=== PATIENT | male | born 1990 | race Two or more races ===

== ENCOUNTER 2019-02-12 02:08 | Emergency (ER) | payer SELFPAY ==
[2019-02-12 02:20] VITALS: BP 130/72
== END 2019-02-12 05:09 | disposition left against medical advice (07) ==
LOC: ER 02:08
DX: Z53.21 Procedure and treatment not carried out due to patient leaving prior to being seen by health care provider (principal)

== ENCOUNTER 2019-12-23 12:09 | Emergency (ER) | payer SELFPAY ==
[2019-12-23] MEDS ORDERED: IBUPROFEN 800 MG TABLET PO ONE (13:21)
--- NOTE | 2019-12-23 13:28 | ER Document Report ---
HPI - HPI Patient complains to provider of: cold symptoms DUPREE Sorethroat Time Seen by Provider: 12/23/19 13:16 Onset: Yesterday Onset/Duration: Sudden Quality of pain: Achy Pain Level: 4 Context: 29-year-old male presents emergency department with complaints of cough sore throat, nasal congestion, runny eyes headache since yesterday. Denies fever diarrhea vomiting. Took Mucinex without relief of symptoms. Did not receive his flu vaccine this year. Recently flew from [place] to [place]. 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 IN LAST 30 DAYS: No - HEENT HEENT: Atraumatic, Conjuctival Injection - Slightly injected no drainage noted, Normocephalic, PERRLA, Pharyngeal Erythema. negative: Tympanic Membrane Red, Tympanic Membrane Bulging - NECK Neck: Normal Inspection, Supple. negative: Lymphadenopathy-Left, Lymphadenopathy-Right - RESPIRATORY Respiratory: Breath Sounds Normal, No Respiratory Distress - CARDIOVASCULAR Cardiovascular: Regular Rate - GI/ABDOMEN Gastrointestinal: Abdomen Soft, Abdomen Non-Tender - MUSCULOSKELETAL/EXTREMETIES Musculoskeletal/Extremeties: EMA CALDWELL - NEURO Level of Consciousness: Awake, Alert, Appropriate - DERM Integumentary: Warm, Dry Course - Re-evaluation Re-evalutation: 12/23/19 13:24 Patient presents emergency department with headache cough sore throat watery eyes since yesterday. Took Mucinex without relief of symptoms. Denies history of flu vaccine. 12/23/19 14:39 Patient was instructed on influenza B. Instructed on ibuprofen and Flonase and Tamiflu. Instructed on the importance of good handwashing follow-up with his primary care provider return to the ED for worsening symptoms trouble breathing any concerns. He verbalized understanding to all information. Chest X-Ray 12/23/19 13:21 IMPRESSION: No focal consolidation or other evidence of acute intrathoracic process. Laboratory 12/23/19 12/23/19 14:00 14:00 Influenza A (Rapid) NEGATIVE Influenza B (Rapid) POSITIVE Group A Strep Rapid NEGATIVE - Vital Signs Vital signs: Temp Pulse Resp BP Pulse Ox 98.4 F 67 18 133/79 H 99 12/23/19 12:50 12/23/19 12:50 12/23/19 12:50 12/23/19 12:50 12/23/19 12:50 - Diagnostic Test Radiology reviewed: Reports reviewed Discharge - Discharge Clinical Impression: Sore throat, Cough Head ache Qualifiers: Headache type: unspecified Headache chronicity pattern: acute headache Intractability: not intractable Qualified Code(s): R51 - Headache Condition: Stable Disposition: HOME, SELF-CARE Instructions: Ibuprofen (General) ([facility]), Influenza ([facility]), Sore Throat ([facility]) Additional Instructions: *You have been evaluated for cold symptoms today, cough, headache, nasal congestion, influenza B You are positive for influenza B Your chest x-ray was negative for pneumonia Your strep test was negative. A throat culture is pending. You may be contacted in 3 to 4 days should you need antibiotics. *Increase fluid intake as discussed *Take medication as prescribed *Gargle with warm salt water, suck on throat lozenges for your sore throat *Monitor your temperature, take Tylenol as indicated *Follow up with a primary care provider within 1 week *Return to ED for worsening condition, changes, needs, difficulty breathing, concerns Monitor your blood pressure. Your blood pressure was elevated today. This may be because you were anxious, in pain or because you need medication. It is important to follow up with your primary care provider for full evaluation. Prescriptions: Fluticasone Propionate [Flonase Allergy Relief] 18.2 ml NS DAILY #1 spray.susp Ibuprofen [Motrin 800 mg Tablet] 800 mg PO TID #15 tablet Oseltamivir Phosphate [Tamiflu 75 mg Capsule] 75 mg PO BID #10 capsule Forms: Elevated Blood Pressure, Return to Work
--- NOTE | 2019-12-23 13:57 | RADIOLOGY REPORT (SQ) ---
EXAM DESCRIPTION: CHEST 2 VIEWS COMPLETED DATE/TIME: 12/23/2019 1:48 pm REASON FOR STUDY: cough COMPARISON: None. EXAM PARAMETERS: NUMBER OF VIEWS: two views TECHNIQUE: Digital Frontal and Lateral radiographic views of the chest acquired. RADIATION DOSE: NA LIMITATIONS: none FINDINGS: LUNGS AND PLEURA: No opacities, masses or pneumothorax. No pleural effusion. MEDIASTINUM AND HILAR STRUCTURES: No masses or contour abnormalities. HEART AND VASCULAR STRUCTURES: Heart normal size. No evidence for failure. BONES: No acute findings. HARDWARE: None in the chest. OTHER: No other significant finding. IMPRESSION: No focal consolidation or other evidence of acute intrathoracic process. TECHNICAL DOCUMENTATION: JOB ID: [id number] 2010 [employer]- All Rights Reserved Reading location - IP/workstation name: [email or web address]
[2019-12-23 14:21] LABS: A TYPE INFLUENZA AG NEGATIVE (NEGATIVE); B INFLUENZA AG POSITIVE (NEGATIVE)
[2019-12-23 15:13] VITALS: BP 121/68
== END 2019-12-23 15:10 | disposition home or self-care (01) ==
LOC: ER 12:09
DX: J02.9 Acute pharyngitis, unspecified (principal); R05 Cough; R09.81 Nasal congestion; R51 Headache
CPT/HCPCS: 71046; 87070; 87804; 87880

== ENCOUNTER 2020-02-06 17:02 | Emergency (ER) | payer MEDICAID ==
[2020-02-06] MEDS ORDERED: IBUPROFEN 600 MG TABLET PO ONE (17:12)
[2020-02-06] MEDS ORDERED: ACETAMINOPHEN 325 MG TABLET PO ONE (17:12)
--- NOTE | 2020-02-06 17:13 | ER Document Report ---
HPI - HPI Time Seen by Provider: 02/06/20 17:06 Notes: Otherwise healthy 29-year-old male presenting to the emergency department chief complaint of sore throat, dizziness and fever. Patient reports he has also had cough for about a week. He reports it is a productive cough with whitish sputu m. He denies any nausea, vomiting, diarrhea. He denies any recent travel or exposure to any known COVID-19 patients. Past Medical History - General Information source: Patient - Social History Smoking Status: Never Smoker Frequency of alcohol use: None Family History: None - Medical History Medical History: Negative Renal/ Medical History: Denies: Hx Peritoneal Dialysis Surgical Hx: Negative Vertical Provider Document - CONSTITUTIONAL Notes: PHYSICAL EXAMINATION: GENERAL: Well-appearing, well-nourished and in no acute distress. HEAD: Atraumatic, normocephalic. EYES: Pupils equal round and reactive to light, extraocular movements intact, sclera anicteric, conjunctiva are normal. ENT: Nares patent, oropharynx clear without exudates. Right tonsil mildly erythematous and mildly swollen. Uvula midline, no evidence of peritonsillar abscess. Moist mucous membranes. NECK: Normal range of motion, supple without lymphadenopathy LUNGS: Breath sounds clear to auscultation bilaterally and equal. No wheezes rales or rhonchi. HEART: Regular rate and rhythm without murmurs ABDOMEN: Soft, nontender, nondistended abdomen. No guarding, no rebound. No masses appreciated. Musculoskeletal: Normal range of motion, no pitting or edema. No cyanosis. NEUROLOGICAL: Cranial nerves grossly intact. Normal speech, normal gait. Normal sensory, motor exams PSYCH: Normal mood, normal affect. SKIN: Warm, Dry, normal turgor, no rashes or lesions noted. - INFECTION CONTROL TRAVEL OUTSIDE OF THE [place] IN LAST 30 DAYS: No Course - Re-evaluation Re-evalutation: Patient appears well, nontoxic, he does have some swelling to his right tonsil however it does not appear to be an abscess at this time. The rest of his work- up is unremarkable. He does report he feels improved after administration of medications and IV fluids here in the emergency department he will be started on antibiotics for suspected tonsillitis. Strict ED return precautions discussed, patient verbalized understanding and agreement with same. - Vital Signs Vital signs: Temp Pulse Resp BP Pulse Ox 101.4 F H 88 125/70 98 02/06/20 17:10 02/06/20 17:10 02/06/20 17:10 02/06/20 17:10 Discharge - Discharge Clinical Impression: Sore throat Condition: Stable Disposition: HOME, SELF-CARE Additional Instructions: Your work-up today was reassuring. Your rapid strep test and influenza test were negative. I am starting you on antibiotics because your tonsil does appear to have an infection in it. Please take medications exactly as prescribed and finish the entire course even if your symptoms improve. Please use salt water gargles to help with your pain. You may also take Tylenol or ibuprofen for pain and fever. Return to the emergency department if you are unable to swallow your own saliva or have worsening with breathing. Prescriptions: Clindamycin HCl 300 mg PO TID #21 capsule Prednisone [Deltasone 20 mg Tablet] 3 tab PO DAILY 5 Days #15 tablet
[2020-02-06 18:00] LABS: A TYPE INFLUENZA AG NEGATIVE (NEGATIVE); B INFLUENZA AG NEGATIVE (NEGATIVE)
[2020-02-06] MEDS ORDERED: NORMAL SALINE 1000 ML 1,000 ML IV ONE (18:20)
[2020-02-06] MEDS ORDERED: DEXAMETHASONE SOD PHOS INJ 10 MG/1 ML VIAL IV ONE (18:21)
[2020-02-06 18:49] VITALS: BP 119/59
== END 2020-02-06 19:30 | disposition home or self-care (01) ==
LOC: ER 17:02
DX: J02.9 Acute pharyngitis, unspecified (principal); R42 Dizziness and giddiness; R50.9 Fever, unspecified; R05 Cough
CPT/HCPCS: 99284; 96361; 96374; 87070; 87880; 87077; 87804; J7030; J1100

== ENCOUNTER → 2020-03-14 | Outpatient (CLI) | payer MEDICAID ==
--- NOTE | 2020-03-14 12:53 | ER RDC ASSESSMENT REPORT ---
Intake - In the Last 14 days Have you traveled outside [place]?: Yes --City/State: [place] Have you been in close contact with someone CONFIRMED: Yes Worked in Healthcare?: No - Symptoms Subjective Fever([place] feverish): Yes Chills: Yes Muscule Aches: Yes Runny Nose: Yes Sore Throat: No Cough (New or worsening chronic cough): Yes Shortness of breath: No Nausea or Vomiting: No Headache: Yes Abdominal Pain: No Diarrhea(3 or more loose stools in last 24 hours): No - Do you have any of the following Chronic lung disease: Asthma or emphysema or COPD: No Cystic Fibrosis: No Diabetes: No High Blood Pressure: No Cardiovascular Disease: No Chronic Kidney Disease: No Chronic Liver Disease: No Chronic blood disorder like Sickle Cell Disease: No Weak immune system due to disease or medication: No Neurologic condition that limits movement: No Developmental delay - Moderate to Severe: No Recent (within past 2 weeks) or current : Yes - Objective Temperature: 97.7 F Pulse Rate: 69 Respiratory Rate: 18 Blood Pressure: 105/53 O2 Sat by Pulse Oximetry: 96 Objective: Given above, testing performed: If Testing Performed: Test Specimen Type Sent to General - General Information source: Patient Notes: Patient presents to the [facility] testing site for evaluation of possible COVID virus. Patient states that he had recently traveled out of [facility] and has had exposure to someone who did test positive for the coronavirus. 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 Patient states now he only has sore throat symptoms and all the other symptoms have resolved. - HPI Onset: Other - 03/06/2020 Onset/Duration: Gradual Quality of pain: Achy Associated symptoms: Sore throat Exacerbated by: Denies Relieved by: Denies Similar symptoms previously: No Recently seen / treated by doctor: No - Related Data Allergies/Adverse Reactions: No Known Allergies Allergy (Verified 12/23/19 13:19) Past Medical History - General Information source: Patient - Social History Smoking Status: Current Every Day Smoker Frequency of alcohol use: None Drug Abuse: None Family History: None - Medical History Medical History: Negative Renal/ Medical History: Denies: Hx Peritoneal Dialysis Surgical Hx: Negative Physical Exam - General General appearance: Appears well, Alert In distress: None - HEENT Head: Normocephalic, Atraumatic Eyes: Normal Conjunctiva: Normal Nasal: Normal Mouth/Lips: Normal Pharynx: Erythema. No: Exudate, Tonsillar hypertrophy Neck: Normal - Respiratory Respiratory status: No respiratory distress Chest status: Nontender Breath sounds: Normal. No: Rales, Rhonchi, Stridor, Wheezing Chest palpation: Normal - Cardiovascular Rhythm: Regular Heart sounds: S1 appreciated, S2 appreciated Murmur: No - Back Back: Normal, Nontender. No: CVA tenderness - Extremities General upper extremity: Normal inspection, Normal strength General lower extremity: Normal inspection, Normal strength - Neurological Neuro grossly intact: Yes Cognition: Normal Hoda Coma Scale Eye Opening: Spontaneous [place]oda Coma Scale Verbal: Oriented Hoda Coma Scale Motor: Obeys Commands [place] Coma Scale Total: 15 - Psychological Associated symptoms: Normal affect, Normal mood - Skin Skin Temperature: Warm Skin Moisture: Dry Skin Color: Normal Diagnostic Results Laboratory Results: The patient was evaluated during the global Covid 19 pandemic, and that diagnosis was suspected/considered upon their initial presentation. Their evaluation, treatment and testing was consistent with current guidelines for patients who present with complaints or symptoms that may be related to Covid 19. Patient presents with upper respiratory symptoms worrisome for possible Covid 19. Patient does not have emergency worrying symptoms such as difficulty breathing, shortness of breath, chest pain, pressure, confusion or cyanosis. Patient appears suitable for discharge as they are not of an advanced age, do not have any chronic medical conditions such as diabetes, CAD, immune deficiency, chronic lung disease or chronic kidney disease. Patient's vital signs are stable and patient is nontoxic in appearance. Good return precautions have been discussed with patient, patient verbalized understanding and is agreeable with discharge plan of care at this time. Patient Education/Counseling Counseling/Education: Patient was provided with discharge information including: As a person under investigation for Covid 19, the [place] department of Health and Human Services, division of public health advises you to adhere to the following guidance until your test results are reported to you. If your test result is positive, you will receive additional information from your provider and your local health department at that time. Remain at home until you are cleared by the health provider or public health authorities. Keep a log of visitors to your home, notify any visitors to your home of your isolation status. If you plan to move to a new address or leave the county, notify the local health department in your County. Call your doctor or seek care if you have an urgent medical need. Before seeking medical care, call ahead to get instructions from the provider before arriving at the medical office clinic or hospital. Notify them that you are being tested for the virus that causes Covid 19 so that arrangements can be made, as necessary, to prevent transmission to others in the healthcare setting. Next, notify the local health department in your county. If a medical emergency arises and you need to call 911, inform the first responders that you are being tested for the virus that causes Covid 19. Next, notify the local health department in your county. RDC Discharge - Discharge Clinical Impression: Sore throat, covid 19 screening Condition: Stable Disposition: Home; Selfcare
[2020-03-14 12:54] VITALS: BP 105/53
[2020-03-14 13:40] LABS: A TYPE INFLUENZA AG NEGATIVE (NEGATIVE); B INFLUENZA AG NEGATIVE (NEGATIVE)
== END ==
LOC: RDC 12:16
PROVIDERS: ATTEND Nurse Practitioner Family
DX: Z20.828 Contact with and (suspected) exposure to other viral communicable diseases (principal); R50.9 Fever, unspecified; R05 Cough; M79.10 Myalgia, unspecified site; R09.89 Other specified symptoms and signs involving the circulatory and respiratory systems; R51 Headache
CPT/HCPCS: 87070; 87635; 87804; 87880; 99211

== ENCOUNTER 2020-05-11 11:29 | Emergency (ER) | payer MEDICAID ==
[2020-05-11 12:15] VITALS: BP 123/69
--- NOTE | 2020-05-11 12:18 | ER Document Report ---
ED Medical Screen (RME) - General Chief Complaint: Abscess Stated Complaint: ABSCESS/GROIN AREA Time Seen by Provider: 05/11/20 12:14 Primary Care Provider: JOSE AVERY [Primary Care Provider] - Follow up as needed Notes: HPI: 30-year-old male presenting to the emergency department complaining of concerned about a small raised area on the base of the penis. States he has had a small cystic type structure there for many years but it began getting larger and more painful over the last 2 days. He is concerned it might be an STD such as chlamydia but denies penile discharge or burning with urination. Denies other testicular pain PHYSICAL EXAMINATION: Limited exam in triage, there is a small cystic structure measuring approximately 1 cm in diameter on the left side of the base of the penis on the volar aspect. Bilateral testicles appear descended and nontender without any definitive palpable mass I have greeted and performed a rapid initial assessment of this patient. A comprehensive ED assessment and evaluation of the patient, analysis of test results and completion of medical decision making process will be conducted by an additional ED providers. TRAVEL OUTSIDE OF THE [place] IN LAST 30 DAYS: No - Related Data Allergies/Adverse Reactions: No Known Allergies Allergy (Verified 12/23/19 13:19) Past Medical History Renal/ Medical History: Denies: Hx Peritoneal Dialysis Physical Exam - Vital signs Vitals: Temp Pulse Resp BP Pulse Ox 99.1 F 67 16 123/69 98 05/11/20 11:38 05/11/20 11:38 05/11/20 11:38 05/11/20 11:38 05/11/20 11:38 Course - Vital Signs Vital signs: Temp Pulse Resp BP Pulse Ox 99.1 F 67 16 123/69 98 05/11/20 11:38 05/11/20 11:38 05/11/20 11:38 05/11/20 11:38 05/11/20 11:38 Doctor's Discharge - Discharge Referrals: JOSE AVERY [Primary Care Provider] - Follow up as needed
[2020-05-11 13:11] LABS: APPEARANCE,URINE CLEAR; BILIRUBIN,URINE NEGATIVE (NEGATIVE); COLOR,URINE YELLOW; GLUCOSE, URINE NEGATIVE (NEGATIVE); KETONES,URINE TRACE mg/dL (NEGATIVE); LEUKOCYTE ESTERASE,URINE NEGATIVE (NEGATIVE); NITRITE,URINE NEGATIVE (NEGATIVE); PROTEIN,URINE NEGATIVE (NEGATIVE); URINE SPECIFIC GRAVITY 1.019; UROBILINOGEN,URINE NEGATIVE mg/dL (<2.0)
--- NOTE | 2020-05-11 14:51 | ER Document Report ---
ED Skin Rash/Insect Bite/Abscs - General Chief Complaint: Testicular Pain Stated Complaint: ABSCESS/GROIN AREA Time Seen by Provider: 05/11/20 12:14 Primary Care Provider: JOSE AVERY [NO GRIFFIN GAXIOLA] - Follow up as needed ALETA BUTTERFIELD MD [NO GRIFFNI GAXIOLA] - Follow up tomorrow (Call for an outpatient follow-up appointment.) Mode of Arrival: Ambulatory Information source: Patient Notes: 30-year-old male with no previous medical problems presents to the emergency room complaining of a tender swollen area to the left side of his penis that he states he has had for several years. Has noticed that increasing in size over the past 2 to 3 days. Denies any discharge or draining. Does complain of some occasional dysuria. No other urinary symptoms. No medications for symptoms. Denies any fevers. No history of STDs. Recent change in sexual partner 2 months ago. Unknown partner with any symptoms. States he does wear a condom for protection. TRAVEL OUTSIDE OF THE [place] IN LAST 30 DAYS: No - Related Data Allergies/Adverse Reactions: No Known Allergies Allergy (Verified 12/23/19 13:19) Past Medical History - General Information source: Patient - Social History Smoking Status: Current Some Day Smoker Frequency of alcohol use: Occasional Drug Abuse: None Family History: None Renal/ Medical History: Denies: Hx Peritoneal Dialysis Review of Systems - Review of Systems Constitutional: No symptoms reported Cardiovascular: No symptoms reported Respiratory: No symptoms reported Gastrointestinal: No symptoms reported Genitourinary: Dysuria Male Genitourinary: Other - Painful lesion to base of penis Musculoskeletal: No symptoms reported Skin: No symptoms reported Neurological/Psychological: No symptoms reported -: Yes All other systems reviewed and negative Physical Exam - Vital signs Vitals: Temp Pulse Resp BP Pulse Ox 99.1 F 67 16 123/69 98 05/11/20 11:38 05/11/20 11:38 05/11/20 11:38 05/11/20 11:38 05/11/20 11:38 - Notes Notes: VITAL SIGNS: Within normal limits. GENERAL: Mild acute distress, non-toxic appearance. HEAD: Normal with no signs of head trauma. EYES: PERRLA, EOMI, conjunctiva normal, no discharge. EARS: Hearing grossly intact. NOSE: Normal. THROAT: Oropharynx is normal. NECK: Normal range of motion, no tenderness, supple, no lymphadenopathy, No adenopathy, no JVD. CHEST: Clear breath sounds bilaterally. No wheezes, rales, or rhonchi. CARDIAC: Regular rate and rhythm. S1 and S2, without murmurs, gallops, or rubs. VASCULAR: No Edema. Peripheral pulses normal and equal in all extremities. ABDOMEN: Normal and soft with no tenderness, no masses or pulsatile masses. GASTROINTESTINAL: Bowel sounds normal GENITOURINARY: Welder Helper present. Circumcised male, with less than a 1 cm raised lesion that is noted to the base of the left shaft of the penis. It is nontender to palpation. It is not warm to touch. There is no active discharge or draining noted. Testicles descended bilaterally normally, no scrotal pain or scrotal swelling. Penile discharge. LYMPATHTIC: No lymphadenopathy noted. MUSCULOSKELETAL: Good range of motion of all major joints. Extremities without clubbing, cyanosis or edema. NEUROLOGICAL: Alert and oriented x 3. No focal sensory or strength deficits. Speech normal. Follows commands appropriately. PSYCHIATRIC: Normal Affect, judgement and mood. SKIN: Normal appearance with no rashes or lesions. Course - Re-evaluation Re-evalutation: 05/11/20 14:53 Patient is aware that he will be notified of his gonorrhea and Chlamydia tests as they are resulted if positive. Reviewed urinalysis results with patient. Patient was counseled on need to follow-up outpatient with urology for the cyst at the base of his penis. He was counseled not to try to pop it on his own. Take Tylenol and Motrin as needed for pain. Patient was given strict return to the emergency room guidelines. Return for any new or worsening symptoms. All questions were answered. Patient verbalized understanding and agrees with plan of care. 05/11/20 15:22 - Vital Signs Vital signs: Temp Pulse Resp BP Pulse Ox 99.1 F 67 16 123/69 98 05/11/20 11:38 05/11/20 11:38 05/11/20 11:38 05/11/20 11:38 05/11/20 11:38 - Laboratory Laboratory results interpreted by me: 05/11/20 12:40 Urine Ketones TRACE H Discharge - Discharge Clinical Impression: Penile cyst Condition: Stable Disposition: HOME, SELF-CARE Instructions: Abscess ([facility]), Genital Warts ([facility]) Additional Instructions: You will be notified if your gonorrhea and/or chlamydia test are positive. Follow-up with urology as discussed. Take Tylenol and/or Motrin as needed for pain. Return for any new or worsening symptoms. Referrals: JOSE AVERY [NO LOCAL MD] - Follow up as needed ALETA BUTTERFIELD MD [NO LOCAL MD] - Follow up tomorrow (Call for an outpatient follow-up appointment.)
[2020-05-11 17:20] LABS: CHLAM PCR NOT DETECTED (NOT DETECT)
== END 2020-05-11 15:48 | disposition home or self-care (01) ==
LOC: ER 11:29
DX: N48.89 Other specified disorders of penis (principal); F17.200 Nicotine dependence, unspecified, uncomplicated
CPT/HCPCS: 81001; 87491; 87591; 99283